=== PATIENT | male | born 1955 | race African-American/Black ===

== ENCOUNTER 2017-09-27 23:17 | Emergency (ER) | payer MEDICAID ==
[~2017-09-27] VITALS: Ht 167.6 cm; Wt 60.0 kg
[2017-09-28] MEDS ORDERED: KETOROLAC 30MG/ML VIAL IM ONE (04:00)
[2017-09-28 04:13] LABS: BASOPHILS % 2.6 % (0.0-2.0); EOSINOPHILS % 3.7 % (0.0-5.0); HEMATOCRIT. 40.5 % (42.0-52.0); HEMOGLOBIN. 13.1 g/dL (14.0-18.0); LYMPHOCYTES % 61.2 % (20.0-50.0); MEAN CORPUSCULAR VOLUME 92.9 fL (80.0-94.0); MEAN PLATELET VOLUME 7.6 fl (7.4-10.4); MONOCYTES % 8.3 % (2.0-8.0); NEUTROPHILS % 24.2 % (40.0-76.0); PLATELET 328 x1000/uL (130-400); RED BLOOD CELL COUNT 4.36 mill/uL (4.7-6.1); RED CELL DISTRIBUTION WIDTH 13.9 % (11.6-14.6)
[2017-09-28 04:23] LABS: PROTHROMBIN TIME 10.2 sec (9.4-11.6)
[2017-09-28 04:29] LABS: CARBON DIOXIDE 30 mEq/L (21-32); CHLORIDE 109 mEq/L (98-107)
[2017-09-28] MEDS ORDERED: ACETAMINOPHEN 325MG TABLET PO ONE (05:00)
[2017-09-28 05:15] VITALS: BP 133/89
== END 2017-09-28 05:37 | disposition left against medical advice (07) ==
LOC: ER 23:48
DX: M25.512 Pain in left shoulder (principal); M54.2 Cervicalgia; R51 Headache; I10 Essential (primary) hypertension; F10.20 Alcohol dependence, uncomplicated; Z88.0 Allergy status to penicillin; W19.XXXA Unspecified fall, initial encounter; Y93.89 Activity, other specified; Y92.811 Bus as the place of occurrence of the external cause; Y99.8 Other external cause status
CPT/HCPCS: 36415; 70450; 72125; 73030; 80053; 85025; 85610; 99285; J1885

== ENCOUNTER 2017-10-20 18:18 | Emergency (ER) | payer MEDICAID ==
[~2017-10-20] VITALS: Ht 167.6 cm; Wt 60.0 kg
[2017-10-20 18:36] VITALS: BP 112/88
== END 2017-10-20 22:21 | disposition left against medical advice (07) ==
LOC: ER 19:39
DX: Z53.21 Procedure and treatment not carried out due to patient leaving prior to being seen by health care provider (principal)